=== PATIENT | female | born 1970 | race Caucasian/White ===

== ENCOUNTER 2024-12-28 21:28 | Emergency (ER) | payer SELFPAY ==
[~2024-12-28] VITALS: Ht 165.1 cm; Wt 54.4 kg
[2024-12-28] MEDS ORDERED: LORazepam 1 MG TAB PO ONE (22:15)
== END 2024-12-28 23:05 | disposition home or self-care (01) ==
LOC: ED 21:28
DX: M94.0 Chondrocostal junction syndrome [Tietze] (principal); F41.9 Anxiety disorder, unspecified; F17.200 Nicotine dependence, unspecified, uncomplicated; Z88.0 Allergy status to penicillin